=== PATIENT | male | born 1935 | race Caucasian/White ===

== ENCOUNTER → 2021-10-04 | Outpatient (CLI) | payer MEDICARE ==
--- NOTE | 2021-10-04 17:00 | RAD ---
XR CHEST 2V History: Reason: SHORT OF BREATH / Spl. Instructions: / History: Comparison: None. Findings: Mild bibasilar linear atelectasis. No consolidation or pleural effusion. Normal heart size. No pneumo thorax. Impression: 1. No acute cardiopulmonary process. Electronically signed by: Kaleb Holt DO (10/04/2021 4:58 PM) [id number]
== END ==
LOC: RAD 11:21
PROVIDERS: ATTEND Internal Medicine Pulmonary Disease
DX: J98.11 Atelectasis (principal); R06.02 Shortness of breath
CPT/HCPCS: 71046